=== PATIENT | female | born 1970 | race Asian ===

== ENCOUNTER 2017-08-16 09:33 | Day surgery (SDC) | payer BC ==
[~2017-08-16] VITALS: Ht 167.6 cm; Wt 53.0 kg
[2017-08-16 10:33] VITALS: BP 112/65; PULSE 74; TEMP 98.8
[2017-08-16 11:05] VITALS: BP 112/72; PULSE 70; TEMP 98
[2017-08-16 11:20] VITALS: BP 110/79; PULSE 63
[2017-08-16 11:35] VITALS: BP 98/68; PULSE 65
[2017-08-16] MEDS ORDERED: PRILOSEC 20MG20 MG PO (11:49)
[2017-08-16 11:50] VITALS: BP 109/72; PULSE 65
[2017-08-16] MEDS ORDERED: AMOXICILLIN 50500 MG PO (11:50)
[2017-08-16] MEDS ORDERED: BIAXIN 500MG T500 MG PO (11:54)
[2017-08-16 12:00] VITALS: BP 100/68; PULSE 71
== END 2017-08-16 12:25 | disposition home or self-care (01) ==
LOC: SDCO 09:33
DX: B96.81 Helicobacter pylori [H. pylori] as the cause of diseases classified elsewhere (principal); K29.30 Chronic superficial gastritis without bleeding; Z80.0 Family history of malignant neoplasm of digestive organs
CPT/HCPCS: OP; J2250; J3010; J7030